=== PATIENT | male | born 1955 | race Caucasian/White ===

== ENCOUNTER 2018-03-31 13:30 | Day surgery (SDC) | payer BC ==
[2018-03-31] MEDS ORDERED: FENTAnyl 50 MCG/ML VIAL (15:26)
[2018-03-31] MEDS ORDERED: MIDAZOLAM 1 MG/ML 2 ML INJ (15:26)
[2018-03-31] MEDS ORDERED: PROPOFOL 20 ML (15:26)
== END 2018-03-31 16:09 | disposition home or self-care (01) ==
LOC: GIL 13:30
DX: Z12.11 Encounter for screening for malignant neoplasm of colon (principal); D12.5 Benign neoplasm of sigmoid colon; K64.8 Other hemorrhoids
CPT/HCPCS: 45380; 88305